=== PATIENT | female | born 1955 | race Caucasian/White ===

== ENCOUNTER 2019-04-12 06:30 | Day surgery (SDC) | payer OTHER ==
[2019-04-09 10:26] LABS: HEMATOCRIT 43.3 % (36.0-48.0); HEMOGLOBIN 14.6 g/dL (12-16); MCH 32.4 pg (26.0-34.0); MCHC 33.7 g/dL (31.0-37.0); MEAN PLATELET VOLUME 9.2 fL (7.4-10.4); RBC 4.51 10x6/uL (4.00-5.40); RDW 12.9 % (11.5-14.5); WBC 8.6 10x3/uL (4.8-10.8)
[~2019-04-12] VITALS: Ht 147.3 cm; Wt 53.5 kg
[~2019-04-12 06:30] MED LIST: ESTRADERM 0.10.1 MG TD; NEURONTIN 300300 MG PO; NEXIUM20 MG PO; PROBIOTIC BLEN1 EACH; PROMETRIUM200 MG PO; PROVERA10 MG PO; ZYRTEC10 MG PO
--- NOTE | 2019-04-12 07:38 | NUR ---
0737 PT REPORTS HAVING A PRODUCTIVE COUGH LIGHT YELLOW SPUTUM. COUGHING THIS AM. RECEIVED ORDER FROM NEO MILLER CRNA TO ORDER AN ALBUTEROL UPDRAFT ON PT.
[2019-04-12 07:49] VITALS: BP 141/89; Ht 147.3 cm; Wt 53.5 kg
--- NOTE | 2019-04-12 07:57 | NUR ---
0741 RESPIRATORY THERAPIST HERE TO START AEROSOL INHALATION TREATMENT. RT REPORTS PT WHEEZING ON RIGHT UPPER AND LOWER BASES 0746 RT REPORTS THAT WHEEZING IS GONE AFTER TREATMENT. 0755 PT'S COUGHING HAS CEASED. PT STATES HER BREATHING SEEMS MUCH BETTER.
[2019-04-12] MEDS ORDERED: HYDROCODON-ACE1 EA10 PO (09:49)
--- NOTE | 2019-04-12 10:47 | NUR ---
1125 FL DIET SERVED.
--- NOTE | 2019-04-14 17:54 | OP ---
PATIENT NAME: GENIE CLAYTON MEDICAL RECORD: [id number] :57 LOCATION:[facility] ADMISSION DATE: SURGEON: EBENEZER NIEVES MD DATE OF OPERATION: 04/12/2019 PREOPERATIVE DIAGNOSES: 1. Impingement syndrome of the right shoulder. 2. Acromioclavicular arthritis of the right shoulder. 3. Possible rotator cuff tear. POSTOPERATIVE DIAGNOSES: 1. Impingement syndrome of the right shoulder. 2. Acromioclavicular arthritis of the right shoulder. 3. Severe biceps tendinitis noted. 4. No full-thickness rotator cuff tear seen. PROCEDURES: 1. Arthroscopic biceps tenotomy. 2. Arthroscopic distal clavicle excision done through separate incision - 1 cm. 3. Arthroscopic subacromial decompression, acromioplasty, and bursectomy. SURGEON: Ebenezer Nieves MD CAPACITY PLANNING ENGINEER: SESAR Hill INTRAOPERATIVE COMPLICATIONS: None. SUMMARY OF PATHOLOGIC FINDINGS: While the rotator cuff suggested a partial undersurface tearing. The patient did have a very small PASTA lesion not in need of arthroscopic repair, not seen on the MRI was the patient's severe biceps tendinitis that required biceps tenotomy. There was at least 50% tearing of the biceps tendon with severe tendinitis associated with it. The decision was made intraoperatively to proceed with a biceps tenotomy as it was clearly needed. The patient had a downward sloping acromion with excoriation of the coracoacromial ligament as well as grade IV chondromalacia of the distal clavicle. OPERATIVE SUMMARY IN DETAIL: After obtaining the appropriate preoperative orthopedic surgery consent as well as anesthetic consultation, evaluation and clearance, the patient was brought into the operating room and placed on operating table in supine position. After general laryngeal mask airway was administered, the patient was placed in a left lateral decubitus position. All pressure points were well padded to include down leg peroneal pad. The patient was held firmly to the operating room using the suction system. Right upper extremity and shoulder were then prepped and draped in routine sterile fashion. The arm was held in the Arthrex traction boom with 30 of forward flexion, 30 degrees of abduction with 10 pounds of traction laterally. At this point, the appropriate timeout was taken and agreed upon by all. Arthroscopy was established in the glenohumeral joint from the posterior portal. Anterior portal was established in the anterior safe interval. Diagnostic arthroscopy did reveal the above findings. [place] tissue ablation system was utilized to detach the biceps tendon and complete the tenotomy at the bicipital labral junction. OPERATIVE REPORT [id number] GENIE CLAYTON Having completed this, attention was turned to the subacromial space. While on subacromial space again, pathologies as noted above were found. Accessory lateral portal was created through which the [place] tissue ablation system was utilized to denude the undersurface of the acromion of all soft tissue elements and release of the coracoacromial ligament. A 5-0 barrel bur was then used to perform acromioplasty at the level of acromioclavicular joint and then through a separate arthroscopic anterior portal under direct arthroscopic visualization, distal clavicle was excised for 1 cm. Having completed this, the subacromial bursa was taken down anteriorly, laterally, posteriorly as well as across the top. The rotator cuff tear was seen on the superficial side. At this point, arthroscopic portals were closed with 4-0 Prolene in a routine interrupted fashion by SESAR Hill. Sterile dressings were applied. The patient was awakened, taken to the recovery room in stable condition. All final needle and sponge counts were correct. TRANSINT:[id number] Voice Confirmation ID: [id number] DOCUMENT ID: [id number] EZEQUIEL PARK, EBENEZER HARMON at 1754 CC: [id number] DICTATION DATE: 04/12/19 1006 TELEPHONE INFORMATION SUPERVISOR: 04/12/19 1801 [facility] 04/12/19 [facility] [address] [place] [address]
== END 2019-04-12 11:35 | disposition home or self-care (01) ==
LOC: D.OPS 06:30 → D.PAN 08:45 → D.OPS 08:45
PROVIDERS: Anesthesiology; ATTEND Orthopaedic Surgery
DX: M75.41 Impingement syndrome of right shoulder (principal); M19.011 Primary osteoarthritis, right shoulder; M25.511 Pain in right shoulder; M75.121 Complete rotator cuff tear or rupture of right shoulder, not specified as traumatic; Z01.411 Encounter for gynecological examination (general) (routine) with abnormal findings; N95.9 Unspecified menopausal and perimenopausal disorder; F41.9 Anxiety disorder, unspecified